=== PATIENT | male | born 1975 | race Caucasian/White ===

== ENCOUNTER 2020-10-28 16:41 | Emergency (ER) | payer OTHER, SELFPAY ==
--- NOTE | 2020-10-28 17:15 | DI.RAD_ITS ---
Exam(s) XR FINGER RT RING EXAM: XR FINGER RT RING CLINICAL HISTORY: trauma, ? dislocation. TECHNIQUE: 2D digital imaging was performed. COMPARISON: No exams were available for comparison FINDINGS: BONES: There is an acute comminuted mildly displaced and angulated fracture of the middle phalanx of the right ring finger. No bony destructive lesion is seen. JOINTS: No dislocation present. SOFT TISSUE: Soft tissue swelling. IMPRESSION: Acute fracture of the middle phalanx of the right ring finger as described above. DATA REPOSITORY: RADIATION DOSE DELIVERED:
[2020-10-28 17:16] VITALS: BP 136/77; PULSE 73; RESP 16; TEMP 37.1; O2SAT 97
--- NOTE | 2020-10-28 17:20 | W.ED.GENAD ---
Discharge Plan Disposition Patient Disposition: HOME Condition: Stable Discharge Details Clinical Impression: Fracture of finger of right hand Primary Care Provider: Unknown,Unknown ED Provider: Angie Blum Home Meds and New Rx's Prescriptions: No Action No Known Home Meds RF: 0 Discharge Instructions Instructions: Finger Fracture (ED) Additional Instructions: keep splint on until you follow up with orthopedics elevate to reduce swelling and throbbing ice to affected area 4-5 times daily acetaminophen 650 mg 4 times daily as needed for pain can add ibuprofen 600 mg 4 times daily if needed, you can alternate the 2 every 3 hours. take with food. Referrals: Hilton Thomas MD [ [facility] - (or follow up with orthopedics when you return home) Medical Decision Making isolate injury to right 4th finger, between DIP and PIP, bruising over PIP,limited range of motion. differentials include fracture or dislocation or both. took ibuprofen prior to arrival. xray demonstrates fracture with good alignment. will splint and discharge home with outpatient orthopedic follow up. OTC pain medication. ice, elevation Medical Records Medical records reviewed: Yes I reviewed the patient's medical records. Imaging Data Radiologic Study: Imaging: X-Ray (fracture) Radiologist's impression: PROCEDURE INFORMATION: Exam: XR Right Hand Exam date and time: 10/28/2020 5:24 PM Age: 45 years old Clinical indication: Injury or trauma; Other: Caught in rope; Wound; Right; Ring finger TECHNIQUE: Imaging protocol: XR Right hand. Views: 3 or more views. Total images: 3 COMPARISON: No relevant prior studies available. FINDINGS: Bones/joints: There is a comminuted, mildly displaced fracture of the ring finger middle phalanx. No dislocation. Soft tissues: There is soft tissue swelling. IMPRESSION: 1. Comminuted, mildly displaced ring finger middle phalangeal fracture. 2. Soft tissue swelling. Dictated and Authenticated by: Jeff Abbasi MD. Ordering:PATRICIA Adams MD [facility] General Mode of arrival: ambulatory. Date/Time Provider Initiated Documentation: 10/28/20 17:18. Limitations to Documentation: no limitations. Information obtained by: patient. HPI Narrative: left hand dominant, injury to right ring finger on a rope swing, took ibuprofen 400 mg [employer] Related Data Home Medications Medication Instructions Recorded Confirmed Unknown [No Known Home Meds] 10/28/20 10/28/20 Allergies Allergy/AdvReac Type Severity Reaction Status Date / Time No Known Allergies Allergy Unverified 10/28/20 17:21 General MYLES: 4 Review of Systems Constitutional Constitutional: Reports system reviewed and no additional complaints, except as documented Musculoskeletal Musculoskeletal: Reports deformity (right 4th finger), Reports arthralgias, Reports joint swelling, Reports limited range of motion and Denies numbness Integumentary/Breasts Skin/Breast: Denies new lesions and Denies rash Neurologic Neurologic: Denies numbness PFSH Social History Smoking/Tobacco Use Status: Former Tobacco Use Smoking risk assessment performed?: Yes Substance use type: does not use Exam Const General: cooperative, healthy appearing, comfortable and no acute distress Nutritional Appearance: average body habitus Orientation: alert, awake and oriented x3 HENMT Head: normal to inspection, normocephalic and atraumatic Mouth: oral mucosae normal Cardio Rate: regular rate (right radial pulse good) Rhythm: regular rhythm Extrem Hand/finger images: 1. deformity 2. bruising
--- NOTE | 2020-10-28 18:15 | DI.VRAD_ITS ---
PROCEDURE INFORMATION: Exam: XR Right Hand Exam date and time: 10/28/2020 5:24 PM Age: 45 years old Clinical indication: Injury or trauma; Other: Caught in rope; Wound; Right; Ring finger TECHNIQUE: Imaging protocol: XR Right hand. Views: 3 or more views. Total images: 3 COMPARISON: No relevant prior studies available. FINDINGS: Bones/joints: There is a comminuted, mildly displaced fracture of the ring finger middle phalanx. No dislocation. Soft tissues: There is soft tissue swelling. IMPRESSION: 1. Comminuted, mildly displaced ring finger middle phalangeal fracture. 2. Soft tissue swelling. Dictated and Authenticated by: Jeff Abbasi MD. Ordering:PATRICIA Adams MD
== END 2020-10-28 18:46 | disposition home or self-care (01) ==
PROVIDERS: Emergency Provider Nurse Practitioner Acute Care
DX: S62.624A Displaced fracture of middle phalanx of right ring finger, initial encounter for closed fracture (principal); X50.9XXA Other and unspecified overexertion or strenuous movements or postures, initial encounter
CPT/HCPCS: 26720; 73140